=== PATIENT | male | born 1950 | race Caucasian/White ===

== ENCOUNTER → 2020-06-11 07:29 | Outpatient (REF) | payer MEDICARE, SELFPAY | LOC: ANHLAB 07:29 | PROVIDERS: PCP Internal Medicine; Visit Provider Nurse Practitioner | DX: C44.1121 Basal cell carcinoma of skin of right upper eyelid, including canthus (principal); C44.319 Basal cell carcinoma of skin of other parts of face | CPT/HCPCS: 88305; 88331 ==

== ENCOUNTER 2021-03-19 15:30 | Emergency (ER) | payer MEDICARE, SELFPAY ==
--- NOTE | ~2021-03-19 | XR_ITS ---
XR chest 2V 03/19/2021 17:07 Indication: Cough, fever and congestion Procedure: 2 view chest Comparison: No prior studies for comparison. Findings: Bibasilar airspace disease, consistent with pneumonia. No significant pleural effusion. No pneumothorax. No acute osseous abnormality. Impression: 1: Bibasilar airspace disease, compatible with pneumonia. Reviewed, dictated and finalized at location A. Impression: 1: Bibasilar airspace disease, compatible with pneumonia.
[2021-03-19 16:13] VITALS: BP 168/76; PULSE 102; RESP 20; TEMP 38.2; O2SAT 99
[2021-03-19 16:38] LABS: Basophils Absolute Auto 0.1 K/mm3 (0.0-0.1); Basophils Percent Auto 0.4 % (0.2-1.2); Eosinophils Percent Auto 0.2 % (0-4.4); Hematocrit 39.7 % (42.0-52.0); Hemoglobin 13.3 g/dL (14.0-18.0); Immature Granulocyte Absolute 0.09 K/mm3 (0.00-0.031); Immature Granulocyte Percent A 0.6 % (0-0.5); Lymphocytes Absolute Auto 0.86 K/mm3 (0.9-3.2); Lymphocytes Percent Auto 6.1 % (18.3-44.2); Mean Corpuscular HGB Conc 33.5 g/dl (32-36); Mean Corpuscular Hemoglobin 30.1 pg (26-34); Mean Corpuscular Volume 89.8 fl (80-100); Mean Platelet Volume 9.6 fl (7.4-10.4); Monocytes Absolute Auto 0.8 K/mm3 (0.1-0.6); Monocytes Percent Auto 5.7 % (2.6-8.5); Neutrophils Absolute Auto 12.3 K/mm3 (1.3-6.7); Platelet Count Result 252 k/mm3 (150-375); Red Blood Count 4.42 M/mm3 (4.6-6.20); Red Cell Distribution Width 12.4 % (11.5-14.5); White Blood Count 14.1 K/mm3 (4.5-10.0)
[2021-03-19 16:48] LABS: Anion Gap 9 mmol/L (8-16); Blood Urea Nitrogen 15 mg/dL (9-20); Carbon Dioxide 25 mmol/L (22-30); Chloride 106 mmol/L (98-107); Estimated CRCL calculation 91 ml/min; Estimated Glomerular Filt Rate > 60; Glucose 125 mg/dL (65-110); Potassium 4.1 mmol/L (3.4-5.0); Sodium 140 mmol/L (137-145)
[2021-03-19 19:43] VITALS: BP 165/95; PULSE 109; RESP 18; TEMP 38.6; O2SAT 97
[2021-03-19 19:47] VITALS: O2SAT 95
--- NOTE | 2021-03-19 20:25 | ED.GENADULT ---
HPI - General Adult General Chief complaint: Upper Respiratory Infection Stated complaint: cough, sent by pcp Time Seen by Provider: 03/19/21 19:12 Source: patient and RN notes reviewed History of Present Illness HPI narrative: Patient is a 70 y/o male complaining of cough, fever and headache for about 11 days. HE states that he is coughing up some white phlegm. He is taking some OTC cough medicine, which provides temporary relief. He was seen by his PCP today and sent to ED for further evaluation. Related Data Home Medications Medication Instructions Recorded Confirmed calcium-ergocalciferol (vit D2) tablet PO 06/11/20 tablet [id number]-[id number]-hrb tablet PO 06/11/20 149-hyalur 500 mg-500 mg-66.7 mg tablet multivitamin 1 tablet PO DAILY 06/11/20 testosterone TRANSDERMAL 06/11/20 Allergies Allergy/AdvReac Type Severity Reaction Status Date / Time No Known Allergies Allergy Verified 06/18/20 14:56 Review of Systems Constitutional: Constitutional: Denies chills, Reports fever(s), Reports headache(s) and Denies weakness Eyes: Eyes: Denies blurry vision ENT: Reports headache(s) and Denies neck pain Cardiovascular: Cardiovascular: Denies chest pain and Denies dyspnea Respiratory: Respiratory: Reports cough and Denies dyspnea Gastrointestinal: Gastrointestinal: Denies abdominal pain, Denies diarrhea, Denies nausea and Denies vomiting Genitourinary: Genitourinary: Denies hematuria and Denies dysuria Musculoskeletal: Musculoskeletal: Denies back pain and Denies neck pain Neurologic: Reports headache(s) and Denies weakness [facility] Past Medical History Medical History History of basal cell carcinoma (BCC) of skin History of squamous cell carcinoma Family History Family History Other Cerebrovascular accident Diabetes mellitus Family history of arthritis Social History Social History Smoking status: Never smoker Alcohol intake: current Substance use: never Substance use type: does not use Exam Const: General: no acute distress and well developed Orientation/consciousness: oriented to person, oriented to place, oriented to time and patient oriented x3 HENMT: Head: normocephalic Ears: external ears normal General nose exam: Normal external nose present Eyes: General: appearance normal, both eyes and all related structures Conjunctivae: conjunctivae normal Neck: Neck: normal visual inspection and full ROM Chest: Chest palpation & inspection: normal inspection of the chest and no tenderness Resp: Effort & Inspection: normal respiratory effort Auscultation: clear to auscultation bilaterally Cardio: Rate: regular rate Rhythm: regular rhythm GI: GI Palp: No abdominal tenderness and Yes Soft to palpation Skin: General skin exam: normal color and turgor normal Neuro: General: oriented to person, oriented to place, oriented to time and patient oriented x3 Cognition (Neuro): normal cognition Extrem: General: normal to inspection, full ROM and no pedal edema Psych: Appearance: grossly normal Mental Status: mental status grossly normal Affect: normal affect Course Vital Signs Vital signs: Vital Signs Temperature 38.2 C H 03/19/21 16:13 Pulse Rate 102 H 03/19/21 16:13 Respiratory Rate 03/19/21 16:13 Blood Pressure 168/76 H 03/19/21 16:13 Pulse Oximetry 99 03/19/21 16:13 Temperature 37.8 C H 03/19/21 22:29 Pulse Rate 101 H 03/19/21 22:29 Respiratory Rate 22 H 03/19/21 22:29 Blood Pressure 159/79 H 03/19/21 22:29 Pulse Oximetry 95 03/19/21 22:29 Medical Decision Making Vital Signs Vital Signs: Vital Signs Temperature 38.2 C H 03/19/21 16:13 Pulse Rate 102 H 03/19/21 16:13 Respiratory Rate 03/19/21 16:13 Blood Pressure 168/76 H
[2021-03-19 20:48] LABS: EDCOVIDSCREEN Negative (Negative)
[2021-03-19 21:39] LABS: Add Urine Microscopic? YES; Appearance Urine Clear (Clear); Bacteria Urine Trace /hpf; Bilirubin Urine Negative (Negative); Blood Urine Negative (Negative); Color Urine Yellow (Yellow); Glucose Urine UA Negative (Negative); Ketones Urine 2+ mg/dL (Negative); Leukocyte Esterase Ur Negative LEU/UL (Negative); Mucus Urine Heavy /lpf; Nitrate Urine Negative (Negative); Protein Urine 2+ mg/dL (Negative); Specific Grav Ur 1.027 (1.001-1.035); WBC Urine 0-3 /hpf
[2021-03-19 21:53] LABS: Lactic Acid Reflex 0.9 mmol/L (0.7-2.1)
--- NOTE | 2021-03-19 22:17 | PC.NURSE ---
MIGUEL ANGEL DEVI TYLENOL 650MG PO .
[2021-03-19] MEDS: ACETAMINOPHEN 325 MG TABLET 650 MG PO (22:23)
[2021-03-19 22:29] VITALS: BP 159/79; PULSE 101; RESP 22; TEMP 37.8; O2SAT 95
== END 2021-03-19 23:01 | disposition home or self-care (01) ==
PROVIDERS: Emergency Medicine; Emergency Provider Emergency Medicine; PCP Internal Medicine
DX: J18.9 Pneumonia, unspecified organism (principal); Z20.822 Contact with and (suspected) exposure to COVID-19; Z85.828 Personal history of other malignant neoplasm of skin
CPT/HCPCS: 36415; 71046; 80048; 81001; 83605; 85025; 87040; 87426; 96365; 99284; A9270; C9803; J0696

== ENCOUNTER → 2021-04-29 09:16 | Outpatient (REF) | payer MEDICARE, SELFPAY | LOC: ANHLAB 09:16 | PROVIDERS: PCP Internal Medicine; Visit Provider Nurse Practitioner | DX: C44.229 Squamous cell carcinoma of skin of left ear and external auricular canal (principal); C44.619 Basal cell carcinoma of skin of left upper limb, including shoulder | CPT/HCPCS: 88305; 88331 ==

== ENCOUNTER 2021-06-16 07:28 | Outpatient (CLI) | payer MEDICARE, SELFPAY ==
--- NOTE | ~2021-06-16 | MR_ITS ---
EXAMINATION: MR knee RT wo con DATE: 06/16/2021 09:07 INDICATION: Right knee pain. TECHNIQUE: Magnetic resonance imaging (MRI) of the right knee was performed without intravenous contr ast. Sequences included axial PD-weighted FS FSE, coronal PD-weighted FSE and PD-weighted FS FSE, sag ittal PD-weighted FSE, and sagittal T2-weighted FS FSE. COMPARISON: None. FINDINGS: Medial compartment: There is an undersurface horizontal tear of body and posterior horn of medial meniscus. There is part ial-thickness cartilage loss of femoral condyle, deep at the posterior articular surface. There is sh allow partial-thickness cartilage loss of tibial condyle. Lateral compartment: There is a complex tear of posterior root of lateral meniscus. There is partial-thickness cartilage l oss of tibial condyle, deep at the central and posterior articular surface. There is shallow partial- thickness cartilage loss of femoral condyle. Patellofemoral compartment: There is deep partial thickness cartilage loss of patellar medial facet, median ridge, and lateral fa cet with mild subchondral edema-like marrow signal intensity. There is shallow partial-thickness cart ilage loss of trochlea. Ligaments and tendons: There is a complete tear of anterior cruciate ligament at its femoral attachment. There is a partial tear of posterior cruciate ligament characterized with thickening and increased signal intensity. The re are changes of partial tears of medial collateral ligament and fibular collateral ligament charact erized by thickening and increased signal intensity proximally. There is mild patellar tendinopathy. Fluid: There is a small knee joint effusion. There is trace fluid in a Sanford's cyst. There is mild prepatell ar and superficial infrapatellar bursitis. IMPRESSION: 1. Moderate tricompartmental chondrosis. 2. Tears of medial and lateral menisci. 3. Complete tear of anterior cruciate ligament. 4. Partial tear of posterior cruciate ligament. 5. Small knee joint effusion. Reviewed, dictated and finalized at location A. GENCY SERVICES DIRECTOR
== END 2021-06-16 07:29 | disposition home or self-care (01) ==
LOC: ANHIMG 07:36
PROVIDERS: PCP Internal Medicine; Visit Provider Internal Medicine
DX: M25.461 Effusion, right knee (principal); S83.281A Other tear of lateral meniscus, current injury, right knee, initial encounter; S83.521A Sprain of posterior cruciate ligament of right knee, initial encounter; S83.511A Sprain of anterior cruciate ligament of right knee, initial encounter; S83.241A Other tear of medial meniscus, current injury, right knee, initial encounter; X58.XXXA Exposure to other specified factors, initial encounter
CPT/HCPCS: 73721

== ENCOUNTER 2022-03-03 08:49 | Outpatient (CLI) | payer MEDICARE, SELFPAY | END 2022-03-03 08:50 | disposition home or self-care (01) | LOC: ANHAUDIO 08:50 | PROVIDERS: PCP Internal Medicine; Referring Provider Physician Assistant Medical; Visit Provider Physician Assistant Medical | DX: H90.3 Sensorineural hearing loss, bilateral (principal) | CPT/HCPCS: 92557; 92567 ==

== ENCOUNTER 2022-08-04 12:58 | Outpatient (NON) | payer MEDICARE, SELFPAY | END 2022-08-04 12:59 | disposition home or self-care (01) | PROVIDERS: PCP Internal Medicine; Visit Provider Nurse Practitioner | DX: C44.319 Basal cell carcinoma of skin of other parts of face (principal) | CPT/HCPCS: 88305; 88331 ==

== ENCOUNTER 2025-01-25 09:22 | Emergency (ER) | payer MEDICARE, SELFPAY ==
--- OUTSIDE RECORDS SUMMARY | 2025-01-25 09:28 | XMS_ITS | Clinical Summary ---
Author Organization [facility] [facility] Address [address] [place] [address] Care Team Providers Care Aircraft Metalsmith Name Role Phone Tanya Bowen Primary Care Provider [phone] Allergies Active Allergy Reactions Criticality Noted Date Comments Shrimp Hives Medium 11/05/2021 Medications ezetimibe (ZETIA) 10 mg tablet 06/27/20 Active simvastatin (ZOCOR) 10 mg tablet 06/27/20 19 Active losartan (COZAAR) 100 mg tablet Take 1 tablet (100 mg total) by mouth daily 07/31/19 22 Active oxyCODONE (ROXICODONE) 5 mg immediate release tabletIndicati ons:Pain Take 1 tablet (5 mg total) by mouth every 4 (four) hours as needed for pain 10 tablet 11/06/19 22 Active Additional Information Patient not taking.Reported on 08/31/2023 BD Luer-Mitch Syringe 3 mL 22 gauge x 1 syringe as directed 08/18/19 24 Active BD Integra Syringe 3 mL 23 gauge x 1 syringe as directed 08/18/19 24 Active testosterone cypionate (DEPO-TESTOTER ONE) 200 mg/mL injection 150 MG (0.75 ML) INTRAMUSCULARLY EVERY 8 DAYS A SINGLE DOSE 08/18/19 24 Active testosterone micronized, bulk, 100 % powder 5 07/10/20 23 Active Active Problems Problem Noted Date Diagnosed Date Complete tear of right ACL, subsequent encounter 07/28/2024 Carpal tunnel syndrome of right wrist 08/31/2023 Localized superficial swelling, mass, or lump Localized swelling, mass and lump, left upper li mb 08/31/2023 Carpal tunnel syndrome on left 11/01/2021 Overview (11/01/2021): Added automatically from request for surgery [id number] Primary osteoarthritis of right knee 08/02/2021 Chronic pain of right knee 06/21/2021 Rupture of anterior cruciate ligament of right k nee 06/21/2021 Tear of lateral meniscus of right knee, current 06/21/2021 Complex tear of medial menis cus of right knee as current injury 06/21/2021 Surgical History Surgery Date Site/Laterality Comments ROTATOR CUFF REPAIR SHOULDER ARTHROSCOPY Medical History Medical History Date Comments Hypertension Migraines Family History Medical History Relation Name Comments Arthritis Father Stroke Father Arthritis Mother Diabetes Mother Stroke Mother Relation Name Status Comments Father Mother Social History Tobacco Use Types Packs/Day Years Used Date Smoking Tobacco: Never Smokeless Tobacco: Never Tobacco Cessation:Counseling Given: Not Answered AUDIT-C Answer Date Recorded Q1: How often do you have a drink containing alc ohol? Monthly or less 09/08/2023 Q2: How many drinks containi ng alcohol do you have on a typical day when you are drinking? 1 or 2 09/08/2023 Q3: How often do you have si x or more drinks on one occasion? Less than monthly 09/08/2023 Personal Safety Answer Date Recorded Have you ever been in or are you currently in a harmful physical or emotional relationship or is someone making you feel afraid or unsafe? Denies 09/08/2023 Sex and Gender Information Value Date Recorded Sex Assigned at Not on file Legal Sex Male 6:10 PM ASSISTANT THERAPY AIDE Gender Identity Not on file Sexual Orientation Not on file Occupation Industry Job Start Date Job End Date RETIRED Not on file Not on file Not on file Obstetrics History Last Filed Vital Signs Vital Sign Reading Time Taken Comments Blood Pressure 161/85 09/08/2023 2:15 PM ASSISTANT THERAPY AIDE Pulse 89 09/08/2023 2:15 PM ASSISTANT THERAPY AIDE Temperature 36.5 C (97.7 F) 09/08/2023 1:36 PM ASSISTANT THERAPY AIDE Respiratory Rate 20 09/08/2023 2:15 PM ASSISTANT THERAPY AIDE Oxygen Saturation 95% 09/08/2023 2:15 PM ASSISTANT THERAPY AIDE Inhaled Oxygen Concentration - - Weight 104.3 kg (230 lb) 07/28/2024 2:26 PM ASSISTANT THERAPY AIDE Height 175.3 cm (5' 9) 07/28/2024 2:26 PM ASSISTANT THERAPY AIDE Body Mass Index 33.97 07/28/2024 2:26 PM ASSISTANT THERAPY AIDE Plan of Treatment Health Maintenance Due Date Last Done Comments Colon Cancer Screening-Colonoscopy 1950 Depression Screening 1950 Hepatitis C Screening 1950 Hepatitis B Screening 1970 Well Visit 65+ 2017 Pneumococcal vaccine 65+ (2 of 2 - PPSV23) 11/15/2018 11/15/2017 Fall Risk Assessment 09/08/2024 09/08/2023 Influenza Vaccine (Season Ended) 2025 05/19/20 17 DTaP/Tdap/Td Vaccine (2 - Td or Tdap) 11/16/202712/2017 Zoster Vaccine Completed 02/18/2018, 12/2017, 08/02/2012 Insurance [facility] AETNA MEDICARE GOLD TNA MEDICARE GOLD Advance Directives For more information, please contact: [phone] Documents on File Type Date Recorded Patient Fish Salter Expl anation ADVANCE DIRECTIVE 08/05/2019 12:00 AM CARMENCITA R OF TIRE DEBEADER FINANCIAL/MEDICAL Care Teams Aircraft Metalsmith Relationship Specialty Start Date End Date Tanya Bowen PA [address] [place] [id number] PCP - General Family Practice 08/31/23
--- OUTSIDE RECORDS SUMMARY | 2025-01-25 09:28 | XMS_ITS | Referral Summary ---
Author Organization [facility] [facility] Address [address] [place] [address] Care Team Providers Care Dynamics Ax Consultant Name Role Phone Tanya Bowen Primary Care Provider [phone] Allergies Active Allergy Reactions Criticality Noted Date [...] (11/01/2021): Added automatically from request for surgery [id number] Primary osteoarthritis of right knee 08/02/2021 Chronic pain of right knee 06/21/2021 Rupture of anterior cruciate ligament of right k nee 06/21/2021 Tear of lateral meniscus of right knee, current 06/21/2021 Complex tear of medial menis cus of right knee as current injury 06/21/2021 Social History Tobacco Use Types Packs/Day Years [...] on file Legal Sex Male 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 Gender Identity Not on file Sexual Orientation Not on file Occupation Industry Job Start Date Job End Date RETIRED Not on file Not on file Not on file Last Filed Vital Signs Vital Sign Reading Time Taken Comments Blood Pressure 161/85 09/08/2023 2:15 PM MIXED CROP AND LIVESTOCK FARM WORKER Pulse 89 09/08/2023 2:15 PM MIXED CROP AND LIVESTOCK FARM WORKER Temperature 36.5 C (97.7 F) 09/08/2023 1:36 PM MIXED CROP AND LIVESTOCK FARM WORKER Respiratory Rate 20 09/08/2023 2:15 PM MIXED CROP AND LIVESTOCK FARM WORKER Oxygen Saturation 95% 09/08/2023 2:15 PM MIXED CROP AND LIVESTOCK FARM WORKER Inhaled Oxygen Concentration - - Weight 104.3 kg (230 lb) 07/28/2024 2:26 PM MIXED CROP AND LIVESTOCK FARM WORKER Height 175.3 cm (5' 9) 07/28/2024 2:26 PM MIXED CROP AND LIVESTOCK FARM WORKER Body Mass Index 33.97 07/28/2024 2:26 PM MIXED CROP AND LIVESTOCK FARM WORKER Plan of Treatment Not on file Insurance [facility] AETNA MEDICARE GOLD AETNA MEDICARE GOLD Advance Directives For more information, please contact: [phone] Documents on File Type Date Recorded Patient Physician Support Coordinator Expl anation ADVANCE DIRECTIVE 08/05/2019 12:00 AM CARMENCITA R OF LIFTER/DRIVER FINANCIAL/MEDICAL Care Teams Dynamics Ax Consultant Relationship Specialty Start Date End Date Tanya Bowen PA [address] [place] [id number] PCP - General Family Practice 08/31/23
--- OUTSIDE RECORDS SUMMARY | 2025-01-25 09:28 | XMS_ITS | Encounter Summary ---
Author Organization [facility] Address [address] [place] [address] Care Team Providers Care Mother Superior Name Role Phone Scar Simon MD Primary Care Provider [phone] Encounter Details Date Type Department Care Team (Late st Contact Info) Description 10/23/2022 Lab Requisition [facility] DermPath Lab [address] [facility] [address] [facility] [place] [phone] Mich Mays MD [address] [address] [place] [address] Social History Tobacco Use Types Packs/Day Years Used Date Smoking Tobacco: Never Assessed Sex and Gender Information Value Date Recorded Sex Assigned at Not on file Legal Sex Male 4:20 PM CDT Gender Identity Not on file Sexual Orientation Not on file documented as of this encounter Plan of Treatment Not on file documented as of this encounter Procedures Procedure Name Priority Date/Time Associated Diagnosis Comments DERMATOPATHOLOGY Routine 10/23/2022 12:0 0 AM CDT documented in this encounter Results * DERMATOPATHOLOGY (10/23/2022 12:00 AM CDT) Case Report Dermatopathology Report Case: [id number] Authorizing Provider: Mich Mays MD Collected: 10/23/2022 12:00 AM Ordering Location: [facility] DermPath Lab Received: 10/23/2022 04:48 PM Pathologist: Mervat Felix MD Specimens: A) - Skin, left neck B) - Skin, left forearm 10:48 AM CDT DERMATOPATHOLOGY LABORATORY Final Diagnosis Specimen A. SKIN, left neck: SOLAR LENTIGO (L81.4) (see microscopic description) Specimen B. SKIN, left forearm: BASAL CELL CARCINOMA, SUPERFICIAL MULTIFOCAL (C44.619) 10:48 AM CDT DERMATOPATHOLOGY LABORATORY at 1048 CDT Clinical History A: Lentigo vs MM Path#[id number] B: BCCA Path#[id number] 10:48 AM CDT DERMATOPATHOLOGY LABORATORY Gross Description Specimen A: Received is one formalin filled container labeled with the patient's name and designated left neck. The specimen consists of a shave biopsy measuring 4x4x1 mm. Jar 0. Specimen B: Received is one formalin filled container labeled with the patient's name and designated left forearm. The specimen consists of a shave biopsy measuring 5x4x1 mm. Jar 0. 10:48 AM CDT DERMATOPATHOLOGY LABORATORY Microscopic Description Specimen A. SKIN, left neck: There is orthokeratosis. There is a slight increase in epidermal thickness with lentiginous buds of hyperpigmented keratinocytes. The number of melanocytes, highlighted by MART-1/Melan-A immunohistochemical staining, is only mildly increased. In the dermis, there is basophilic degeneration of elastic fibers. Specimen B. SKIN, left forearm: Attached to the undersurface of the epidermis, there are small aggregates of basaloid cells with a high nuclear to cytoplasmic ratio and peripheral palisading. 10:48 AM CDT DERMATOPATHOLOGY LABORATORY Disclaimer An external and internal positive and negative controls are appropriate for the histochemical, immunohistochemical and immunofluorescence stain(s) in this case (if any), except where stated explicitly. The performance characteristics of the stain(s) cited in this report were developed and its performance characteristic determined by the Dermatopathology Laboratory at [facility], directed by Dr. Joaquim Alicea. These tests need not be, and therefore are not, approved by the [place] Food and Drug Administration. The tests are used for clinical purposes. Billing Codes Specimen Charges Stain Charges 42434 27224 1 1 19976 1 3 10:48 AM CDT DERMATOPATHOLOGY LABORATORY Embedded Images 10:48 AM CDT DERMATOPATHOLOGY LABORATORY Pathology/Cytology TISSUE SPECIMEN FROM SKIN / Unknown 10/23/2022 10/23/2022 4:48 PM CDT Miscellaneous samples (specimen) TISSUE SPECIMEN FROM SKIN / Unknown 10/23/2022 10/23/2022 4:48 PM CDT us Mich Mays MD LAB - PATHOLOGY/CYTOLOGY ORDER TIRSO Final Result DERMATOPATHOLOGY LABORATORY [facility] - Department of Dermatology [facility] Medicine [address] [place] [address], [address] [phone] documented in this encounter Visit Diagnoses Not on filedocumented in this encounter Care Teams Mother Superior Relationship Specialty Start Date End Date Scar Simon MD [address] [place] [id number] PCP - General 08/20/22 documented as of this encounter
--- OUTSIDE RECORDS SUMMARY | 2025-01-25 09:28 | XMS_ITS | Clinical Summary ---
Author Organization [facility] Address [address] [place] [address] Care Team Providers Care Arts Therapist Name Role Phone Unavailable Primary Care Provider Unavailabl e Social History Tobacco Use Types Packs/Day Years Used Date Smoking Tobacco: Never Assessed Sex and Gender Information Value Date Recorded Sex Assigned at Not on file Legal Sex Male 7:59 PM CDT Gender Identity Not on file Sexual Orientation Not on file Plan of Treatment Health Maintenance Due Date Last Done Comments Colorectal Cancer Screening Colonoscopy (10 Years) 1952 Hepatitis C 1970 Zoster Vaccines (2 of 3) 09/27/2012 08/02/2012 Pneumococcal Vaccine: 50+ Years (2 of 2 - PPSV23) 11/15/2018 11/15/2017 COVID-19 Vaccine (2023-2 5 season) 2024 04/17/2021, 09/28/2020, 09/07/2020 RSV Immunization or 60+ Years (1 - 1-dose 75+ series) 2027 DTaP, Tdap and Td Vaccines ( 2 - Td or Tdap) 11/16/2027 11/15/2017 Meningococcal B Vaccine Aged Out No l onger eligible based on patient's age to complete this topic Meningococcal Vaccine Aged Out No camron jace eligible based on patient's age to complete this topic RSV Immunizations Under 20 Months Aged Out No longer eligible b ased on patient's age to complete this topic
--- OUTSIDE RECORDS SUMMARY | 2025-01-25 09:28 | XMS_ITS | Encounter Summary ---
Author Organization [facility] Address [address] [place] [address] Care Team Providers Care Front Line Leader Name Role Phone Scar Simon MD Primary Care Provider [phone] Encounter Details Date Type Department Care Team (Late st Contact Info) Description 12/02/2021 Lab Requisition [facility] DermPath Lab [address] [facility] [place] [phone] Mich Mays MD [address] [facility] [address] [place] [address] Social History Tobacco Use Types Packs/Day Years [...] Priority Date/Time Associated Diagnosis Comments DERMATOPATHOLOGY Routine 11/29/2021 12:0 0 AM CDT documented in this encounter Results * DERMATOPATHOLOGY (11/29/2021 12:00 AM CDT) Case Report Dermatopathology Report Case: [id number] Authorizing Provider: Mich Mays MD Collected: 11/29/2021 12:00 AM Ordering Location: [facility] DermPath Lab Received: 12/02/2021 04:53 PM Pathologist: Sonia Street MD Specimen: Skin, right lower cheek 10:07 AM CDT DERMATOPATHOLOGY LABORATORY Final Diagnosis Specimen A. SKIN, right lower cheek: BENIGN VERRUCOUS KERATOSIS, INFLAMED AND ERODED (L82.1) (see microscopic description) 2 10:07 AM T DERMATOPATHOLOGY LABORATORY at [address] [place], [place] [address]T Clinical History AK vs ISK vs SCC. Path#[id number] 10:07 AM T DERMATOPATHOLOGY LABORATORY Gross Description Specimen A: Received is one formalin filled container labeled with the patient's name and designated right lower cheek. The specimen consists of a shave biopsy measuring 9x6x1 mm. Jar 0. 10:07 AM T DERMATOPATHOLOGY LABORATORY Microscopic Description Specimen A. SKIN, right lower cheek: Sections show hyperkeratosis, papillomatosis, hypergranulosis, and acanthosis. Inflammatory cells are present within the dermis. The epidermis is focally eroded. Ki-67 immunohistochemical stain reveals a mildly elevated proliferative index in the lower epidermis. Additional deeper sections were obtained and reviewed. These histological findings can be seen in a verruca vulgaris or a seborrheic keratosis. 10:07 AM T DERMATOPATHOLOGY LABORATORY Disclaimer An external and internal positive and negative controls are appropriate for the histochemical, immunohistochemical and immunofluorescence stain(s) in this case (if any), except where stated explicitly. The performance characteristics of the stain(s) cited in this report were developed and its performance characteristic determined by the Dermatopathology Laboratory at [facility], directed by Dr. Joaquim Alicea. These tests need not be, and therefore are not, approved by the [place] Food and Drug Administration. The tests are used for clinical purposes. Billing Codes Specimen Charges Stain Charges 46503 1 05017 1 2 10:07 AM CDT DERMATOPATHOLOGY LABORATORY Embedded Images 10:07 AM CDT DERMATOPATHOLOGY LABORATORY Pathology/Cytolog y TISSUE SPECIMEN FROM SKIN / Unknown 11/29/2021 12/02/2021 4:53 PM CDT us Mich Mays MD LAB - PATHOLOGY/CYTOLOGY ORDER TIRSO Final Result DERMATOPATHOLOGY LABORATORY [facility] - Department of Dermatology [facility] [facility], 3rd Floor [address] [phone] documented in this encounter Visit Diagnoses Not on filedocumented in this encounter Care Teams Front Line Leader Relationship Specialty Start Date End Date Scar Simon MD [address] [place] [id number] PCP - General 08/20/22 documented as of this encounter
--- OUTSIDE RECORDS SUMMARY | 2025-01-25 09:28 | XMS_ITS | Encounter Summary ---
Author Organization [facility] Address [address] [place] [address] Care Team Providers Care Manager Hi Name Role Phone Scar Simon MD Primary Care Provider [phone] Encounter Details Date Type Department Care Team (Late st Contact Info) Description 02/12/2021 Lab Requisition [facility] DermPath Lab [address] [facility], [place] [phone] Mich Mays MD [address] [place] [address] Social History Tobacco Use Types Packs/Day Years [...] Priority Date/Time Associated Diagnosis Comments DERMATOPATHOLOGY Routine 02/08/2021 3:33 AM CDT documented in this encounter Results * DERMATOPATHOLOGY (02/08/2021 3:33 AM CDT) Case Report Dermatopathology Report Case: [id number] Authorizing Provider: Mich Mays MD Collected: 02/08/2021 03:33 AM Ordering Location: [facility] DermPath Lab Received: 02/12/2021 06:28 AM Pathologist: Sonia Street MD Specimens: A) - Skin, left shoulder B) - Skin, left helix 11:45 AM CDT DERMATOPATHOLOGY LABORATORY Final Diagnosis Specimen A. SKIN, left shoulder: BASAL CELL CARCINOMA (C44.619) (see microscopic description and comment) Specimen B. SKIN, left helix: SQUAMOUS CELL CARCINOMA, WELL DIFFERENTIATED (C44.229) 11:45 AM T DERMATOPATHOLOGY LABORATORY at 1145 CDT Clinical History A: BCCA vs AK. Path# [id number]. B: AK vs SCCA. Path# [id number]. 11:45 AM CDT DERMATOPATHOLOGY LABORATORY Gross Description Specimen A: Received is one formalin filled container labeled with the patient's name and designated left shoulder. The specimen consists of a shave biopsy measuring 4y2u5zy. Jar 0. Specimen B: Received is one formalin filled container labeled with the patient's name and designated left helix. The specimen consists of a shave biopsy measuring [id number]. Jar 0. 11:45 AM CDT DERMATOPATHOLOGY LABORATORY Microscopic Description Specimen A. SKIN, left shoulder: The specimen consists of aggregates of basaloid cells, located within the superficial dermis, with high nuclear to cytoplasmic ratio and peripheral palisading. COMMENT: The small size of the specimen limits subtyping of the lesion. Specimen B. SKIN, left helix: Arising in the epidermis and extending into the dermis there are irregularly shaped aggregates of keratinocytes showing evidence of premature cornification. 11:45 AM CDT DERMATOPATHOLOGY LABORATORY Disclaimer An external and internal positive and negative controls are appropriate for the histochemical, immunohistochemical and immunofluorescence stain(s) in this case (if any), except where stated explicitly. The performance characteristics of the stain(s) cited in this report were developed and its performance characteristic determined by the Dermatopathology Laboratory at [facility], directed by Dr. Joaquim Alicea. These tests need not be, and therefore are not, approved by the [place] Food and Drug Administration. The tests are used for clinical purposes. Billing Codes Specimen Charges Stain Charges 63438 92654 1 1 11:45 AM CDT DERMATOPATHOLOGY LABORATORY Embedded Images 11:45 AM CDT DERMATOPATHOLOGY LABORATORY Pathology/Cytology TISSUE SPECIMEN FROM SKIN / Unknown 02/08/2021 3:33 AM CDT 02/12/2021 6:28 AM CDT Miscellaneous samples (specimen) TISSUE SPECIMEN FROM SKIN / Unknown 02/08/2021 3:33 AM CDT 02/12/2021 6:28 AM CDT us Mich Mays MD LAB - PATHOLOGY/CYTOLOGY ORDER TIRSO Final Result DERMATOPATHOLOGY LABORATORY [facility] - Department of Dermatology [facility] Medicine [address] [place] [address], [address] [phone] documented in this encounter Visit Diagnoses Not on filedocumented in this encounter Care Teams Manager Hi Relationship Specialty Start Date End Date Scar Simon MD [address] [place] [phone] PCP - General 08/20/22 documented as of this encounter
--- OUTSIDE RECORDS SUMMARY | 2025-01-25 09:28 | XMS_ITS | Encounter Summary ---
Author Organization [facility] Address [address] [place] [address] Care Team Providers Care Band Tumbler Name Role Phone Scar Simon MD Primary Care Provider [phone] Encounter Details Date Type Department Care Team (Late st Contact Info) Description 06/13/2022 Lab Requisition [facility] DermPath Lab [address] [address] [facility] [facility] [place] [phone] Mich Mays MD [address] [place] [address] Social History Tobacco Use Types Packs/Day Years [...] Priority Date/Time Associated Diagnosis Comments DERMATOPATHOLOGY Routine 06/13/2022 12:0 0 AM MOLD CARRIER documented in this encounter Results * DERMATOPATHOLOGY (06/13/2022 12:00 AM MOLD CARRIER) Case Report Dermatopathology Report Case: [id number] Authorizing Provider: Mich Mays MD Collected: 06/13/2022 12:00 AM Ordering Location: [facility] DermPath Lab Received: 06/13/2022 04:37 PM Pathologist: Dora Westbrook MD Specimen: Skin, right adventist 4:21 PM MOLD CARRIER DERMATOPATHOLOGY LABORATORY Final Diagnosis Specimen A. SKIN, right adventist: BASAL CELL CARCINOMA, NODULAR TYPE (C44.319) 2 4:21 PM [facility] DERMATOPATHOLOGY LABORATORY at 1621 MOLD CARRIER Clinical History R/O Recurrent BCCA. Path3 [id number] 2 4:21 PM [facility] DERMATOPATHOLOGY LABORATORY Gross Description Specimen A: Received is one formalin filled container labeled with the patient's name and designated right adventist. The specimen consists of a shave biopsy measuring 7x7x1 mm. Jar 0. 2 4:21 PM [facility] DERMATOPATHOLOGY LABORATORY Microscopic Description Specimen A. SKIN, right adventist: Within the dermis there are aggregates of basaloid cells with a high nuclear to cytoplasmic ratio and peripheral palisading. 2 4:21 PM [facility] DERMATOPATHOLOGY LABORATORY Disclaimer An external and internal positive and negative controls are appropriate for the histochemical, immunohistochemical and immunofluorescence stain(s) in this case (if any), except where stated explicitly. The performance characteristics of the stain(s) cited in this report were developed and its performance characteristic determined by the Dermatopathology Laboratory at [facility], directed by Dr. Joaquim Alicea. These tests need not be, and therefore are not, approved by the [place] Food and Drug Administration. The tests are used for clinical purposes. Billing Codes Specimen Charges Stain Charges 17144 1 2 4:21 PM [facility] DERMATOPATHOLOGY LABORATORY Embedded Images 2 4:21 PM [facility] DERMATOPATHOLOGY LABORATORY Pathology/Cytolog y TISSUE SPECIMEN FROM SKIN / Unknown 06/13/2022 06/13/2022 4:37 PM [facility] us Mich Mays MD LAB - PATHOLOGY/CYTOLOGY ORDER TIRSO Final Result DERMATOPATHOLOGY LABORATORY [facility] - Department of Dermatology [facility] Medicine [address] [place] [address], [address] [place] [address], [facility] [phone] documented in this encounter Visit Diagnoses Not on filedocumented in this encounter Care Teams Band Tumbler Relationship Specialty Start Date End Date Scar Simon MD [address] [place] [id number] PCP - General 08/20/22 documented as of this encounter
--- OUTSIDE RECORDS SUMMARY | 2025-01-25 09:28 | XMS_ITS | Encounter Summary ---
Author Organization [facility] Address [address] [place] [address] Care Team Providers Care Sped Teacher Name Role Phone Scar Simon MD Primary Care Provider [phone] Encounter Details Date Type Department Care Team (Late st Contact Info) Description 04/17/2020 Lab Requisition [facility] DermPath Lab [address] [facility] [place] [phone] Mich Mays MD [address] [place] [address] Social History Tobacco Use Types Packs/Day Years [...] Priority Date/Time Associated Diagnosis Comments DERMATOPATHOLOGY Routine 04/13/2020 12:0 0 AM CDT documented in this encounter Results * DERMATOPATHOLOGY (04/13/2020 12:00 AM CDT) Case Report Dermatopathology Report Case: [id number] Authorizing Provider: Mich Mays MD Collected: 04/13/2020 12:00 AM Ordering Location: [facility] DermPath Lab Received: 04/17/2020 07:08 AM Pathologist: Sonia Street MD Specimens: A) - Skin, right restorationism B) - Skin, right upper lid 0 1:20 PM CDT DERMATOPATHOLOGY LABORATORY Final Diagnosis Specimen A. SKIN, right restorationism: BASAL CELL CARCINOMA, INFILTRATIVE PATTERN (C44.319) Specimen B. SKIN, right upper lid: BASAL CELL CARCINOMA, NODULAR TYPE (C44.1121) (see microscopic description) 0 1:20 PM CDT DERMATOPATHOLOGY LABORATORY at 1320 CDT Clinical History A: BCCA. Path # [id number]. B: BCCA. Path # [id number]. 0 1:20 PM CDT DERMATOPATHOLOGY LABORATORY Gross Description Specimen A: Received is one formalin filled container labeled with the patient's name and designated right restorationism. The specimen consists of a shave biopsy measuring 7j8c6te. Jar 0. Specimen B: Received is one formalin filled container labeled with the patient's name and designated right upper lid. The specimen consists of a shave biopsy measuring 3x6w9jc. Jar 0. 0 1:20 PM CDT DERMATOPATHOLOGY LABORATORY Microscopic Description Specimen A. SKIN, right restorationism: Within the dermis there are nodular aggregates of basaloid cells associated with fibromyxoid stroma and epithelial-stromal clefts. At the advancing margin of the neoplasm, there are smaller angulated nests that infiltrate the dermis. Specimen B. SKIN, right upper lid: Within the dermis there are aggregates of basaloid cells with a high nuclear to cytoplasmic ratio and peripheral palisading. Additional deeper sections were obtained and reviewed. 0 1:20 PM CDT DERMATOPATHOLOGY LABORATORY Disclaimer An external and internal positive and negative controls are appropriate for the histochemical, immunohistochemical and immunofluorescence stain(s) in this case (if any), except where stated explicitly. The performance characteristics of the stain(s) cited in this report were developed and its performance characteristic determined by the Dermatopathology Laboratory at [facility], directed by Dr. Joaquim Alicea. These tests need not be, and therefore are not, approved by the [place] Food and Drug Administration. The tests are used for clinical purposes. Billing Codes Specimen Charges Stain Charges 88005 16741 1 1 0 1:20 PM CDT DERMATOPATHOLOGY LABORATORY Embedded Images 0 1:20 PM CDT DERMATOPATHOLOGY LABORATORY Pathology/Cytology TISSUE SPECIMEN FROM SKIN / Unknown 04/13/2020 04/17/2020 7:08 AM CDT Miscellaneous samples (specimen) TISSUE SPECIMEN FROM SKIN / Unknown 04/13/2020 04/17/2020 7:08 AM CDT us Mich Mays MD LAB - PATHOLOGY/CYTOLOGY ORDER TIRSO Final Result DERMATOPATHOLOGY LABORATORY [facility] - Department of Dermatology [facility] Specialized Medicine [address] [place] [address], [address] [phone] documented in this encounter Visit Diagnoses Not on filedocumented in this encounter Care Teams Sped Teacher Relationship Specialty Start Date End Date Scra Simon MD [address] [place] [phone] PCP - General 08/20/22 documented as of this encounter
--- OUTSIDE RECORDS SUMMARY | 2025-01-25 09:28 | XMS_ITS | Clinical Summary ---
Author Organization [facility] Address [address] [place] [address] Care Team Providers Care Route Manager Name Role Phone Scar Simon MD Primary Care Provider [phone] Source Comments [facility],non-owned Affiliates and Associated Physician Practices is amultiple site organization consisting of ambulatory clinics and hospital sitesin [place], [place], [place] and [place]. This disclosure is being madepursuant to the Care Everywhere program and may not contain all information available regarding this patient. Last updated 18.[facility] Social History Tobacco Use Types Packs/Day Years Used Date Smoking Tobacco: Never Assessed Sex and Gender Information Value Date Recorded Sex Assigned at Not on file Legal Sex Male 4:20 PM CDT Gender Identity Not on file Sexual Orientation Not on file Plan of Treatment Health Maintenance Due Date Last Done Comments COLOGUARD (AGES 45-75) - COL ON CA SCREENING 1952 COLON MONITORING 1952 COLONOSCOPY - COLON CA SCREENING 1952 CT COLONOGRAPHY - COLON CA SCREENING 1952 Colorectal Cancer Screening 1952 FIT - COLON CA SCREENING 1952 FLEX SIG - COLON CA SCREENING 1952 LIPID TESTING 1952 HEPATITIS C SCREENING 07/19/1970 DTAP/TDAP/TD VACCINES (1 - Tdap) 1971 PNEUMOCOCCAL VACCINE 50+ (1 of 1 - PCV) 2002 ZOSTER VACCINE (1 of 2) 2002 COVID-19 VACCINE (2023-2 5 season) 2024 DEPRESSION SCREENING 07/13/2024 MEDICARE AWV CALENDAR YEAR 2024 INFLUENZA VACCINE (#1) 2025 Respiratory Syncytial Virus (RSV) Vaccine Pt: or over 60 yrs (1 - 1-dose 75+ series) 2027 HEPATITIS B VACCINE Aged Out No longe r eligible based on patient's age to complete this topic HIB VACCINE Aged Out No longer eligi ble based on patient's age to complete this topic HPV VACCINE Aged Out No longer eligi ble based on patient's age to complete this topic MENINGOCOCCAL (Group B) VACC INE SHARED DECISION-MAKING Aged Out No longer eligibl e based on patient's age to complete this topic MENINGOCOCCAL GROUPS A/C/Y/W VACCINE Aged Out No longer eligible b ased on patient's age to complete this topic Insurance AETNA AETNA MEDICARE [facility] Care Teams Route Manager Relationship Specialty Start Date End Date Scar Simon MD [address] [place] [phone] PCP - General 08/20/22
--- OUTSIDE RECORDS SUMMARY | 2025-01-25 09:28 | XMS_ITS | Encounter Summary ---
Author Organization [facility] Address [address] [place] [address] Care Team Providers Care Mold Finisher Name Role Phone Scar Simon MD Primary Care Provider [phone] Encounter Details Date Type Department Care Team (Late st Contact Info) Description 04/27/2023 Lab Requisition [facility] - DermPath Lab [address] [facility], [place] [phone] Mich Mays MD [address] [place] [address] Social History Tobacco Use Types Packs/Day Years [...] Priority Date/Time Associated Diagnosis Comments DERMATOPATHOLOGY Routine 04/24/2023 12:0 0 AM CDT documented in this encounter Results * DERMATOPATHOLOGY (04/24/2023 12:00 AM CDT) Case Report Dermatopathology Report Case: [id number] Authorizing Provider: Mich Mays MD Collected: 04/24/2023 12:00 AM Ordering Location: [facility] DermPath Lab Received: 04/27/2023 04:05 PM Pathologist: Mervat Felix MD Specimen: Skin, right upper arm 3 2:37 PM CDT DERMATOPATHOLOGY LABORATORY Final Diagnosis Specimen A. SKIN, right upper arm: BASAL CELL CARCINOMA, SUPERFICIAL MULTIFOCAL (C44.612) 3 2:37 PM CDT DERMATOPATHOLOGY LABORATORY at 1437 CDT Clinical History ISK vs AK vs SCCA vs BCCA Path# [id number] 3 2:37 PM CDT DERMATOPATHOLOGY LABORATORY Gross Description Specimen A: Received is one formalin filled container labeled with the patient's name and designated right upper arm. The specimen consists of a shave biopsy measuring 8x6x1 mm. Jar 0. 3 2:37 PM CDT DERMATOPATHOLOGY LABORATORY Microscopic Description Specimen A. SKIN, right upper arm: Attached to the undersurface of the epidermis, there are small aggregates of basaloid cells with a high nuclear to cytoplasmic ratio and peripheral palisading. 3 2:37 PM CDT DERMATOPATHOLOGY LABORATORY Disclaimer An external and internal positive and negative controls are appropriate for the histochemical, immunohistochemical and immunofluorescence stain(s) in this case (if any), except where stated explicitly. The performance characteristics of the stain(s) cited in this report were developed and its performance characteristic determined by the Dermatopathology Laboratory at [facility], directed by Dr. Joaquim Alicea. These tests need not be, and therefore are not, approved by the [place] Food and Drug Administration. The tests are used for clinical purposes. Billing Codes Specimen Charges Stain Charges 05994 1 3 2:37 PM CDT DERMATOPATHOLOGY LABORATORY Embedded Images 3 2:37 PM CDT DERMATOPATHOLOGY LABORATORY Pathology/Cytolog y TISSUE SPECIMEN FROM SKIN / Unknown 04/24/2023 04/27/2023 4:05 PM CDT us Mcih Mays MD LAB - PATHOLOGY/CYTOLOGY ORDER TIRSO Final Result DERMATOPATHOLOGY LABORATORY [facility] - Department of Dermatology [address], [address] [place] [address], [facility] [phone] documented in this encounter Visit Diagnoses Not on filedocumented in this encounter Care Teams Mold Finisher Relationship Specialty Start Date End Date Scar Simon MD [address] [place] [phone] PCP - General 08/20/22 documented as of this encounter
[2025-01-25 09:31] VITALS: BP 141/72; PULSE 87; RESP 18; TEMP 36.6; O2SAT 97
--- NOTE | 2025-01-25 09:36 | ED.EYEPROB ---
HPI - Eye Problem General Chief complaint: Eye Problems Stated complaint: RT Eye Problems Time Seen by Provider: 01/25/25 09:36 Source: patient Mode of arrival: ambulatory Limitations: no limitations History of Present Illness HPI Narrative: 74 y/o male presented for c/o right eye redness and irritation and blurred vision. Onset this morning after accidentally instilling Swimmer's ear drops into the eye instead of his lubricating eye drops. States he immediately flushed the eye with water and lubricating drops. Continued to flush the eye but endorses irritation continued. He has eye doctor who returned their call while in clinic, and will be contacting them upon discharge. MD chief complaint: eye pain Related Data Home Medications ?Medication ?Instructions ?Recorded ?Confirmed ?Last Taken ?Type calcium-ergocalciferol (vit D2) tablet PO 06/11/20 12/06/24 Unknown History tablet peyrcermtzg-igf-nbewwshja-hrb tablet PO 06/11/20 12/06/24 Unknown History 149-hyalur 500 mg-500 mg-66.7 mg tablet (Raffoxpgtbv-Nnskpzkehrq-KJM (with antiox)) multivitamin 1 tablet PO DAILY 06/11/20 01/25/25 Unknown History ascorbate calcium (vitamin C) 500 500 mg PO DAILY 04/29/21 01/25/25 Unknown History mg tablet aspirin 81 mg tablet,delayed 81 mg PO DAILY 04/29/21 01/25/25 Unknown History release naproxen sodium 220 mg capsule 220 mg PO BID PRN 04/29/21 12/06/24 Unknown History olopatadine 0.2 % eye drops (Eye 1 drp EACH EYE DAILY 04/29/21 12/06/24 Unknown History Allergy Itch Relief) tamsulosin 0.4 mg capsule 0.4 mg PO DAILY 10/07/23 01/25/25 Unknown History Allergies Allergy/AdvReac Type Severity Reaction Status Date / Time shrimp Allergy Hives Uncoded 01/25/25 09:24 bananas AdvReac Migraine Uncoded 01/25/25 09:24 chocalate AdvReac Migraine Uncoded 01/25/25 09:24 Review of Systems Review of Systems: CONSTITUTIONAL: Denies body aches, fever, chills EYES:Endorses redness and gritty sensation, tearing, and blurred vision to right eye; Denies swelling, FB sensation, photophobia ENT: Denies rhinorrhea, congestion, sore throat, or otalgia. CARDIOVASCULAR: Denies chest pain, palpitations RESPIRATORY: Denies cough or dyspnea. SKIN: Denies rash, itching, or wounds. NEUROLOGIC: Denies headache, numbness, tingling, or weakness. All systems reviewed & are unremarkable except as noted in HPI and below PMFSH Past Medical History Medical History Edema Dyslipidemia HTN (hypertension) Low testosterone Pain in both feet Contracture of both Achilles tendons Hearing loss Elevated PSA History of squamous cell carcinoma History of basal cell carcinoma (BCC) of skin Surgical History Surgical History History of carpal tunnel release 2021 left wrist, 2023 right wrist History of bilateral cataract extraction 2021 H/O vasectomy Family History Family History Other Cerebrovascular accident Diabetes mellitus Family history of arthritis Social History Social History Social History: Patient declined to answer [facility] Questionnaire on 12/06/2024 Smoking status: Never smoker Second hand tobacco smoke exposure: No Alcohol intake: current Substance use: never Substance use type: does not use Do You Feel Safe in your Home?: Yes Lack of Transportation: No Lack of Food: Never True Current Housing: I Have Housing Concerned About Future Housing: No Difficulty Paying Gas/Electric Bills: No Difficulty Paying for Meds: No Currently Unemployed: No Education: Bachelor's Degree Difficulty w/ Childcare or Family Care: No Living arrangements: with family Occupation/Education: retired Gender identity (if verbalized by the patient): Male Sexual Orientation (if Verbalized by the Patient): Straight or Heterosexual Comments At time of signature, I have reviewed and agree with nursing past medical, surgical, social and family history unless otherwise noted. Please see nursing chart for further information. There is no relevant family history pertinent to the presenting complaint Exam Narrative: GENERAL: Well-appearing HEAD: Normocephalic, atraumatic. EYES: right conjunctival injection, frequent tearing noted. Visual acuity right eye 20/100; left 20/30. No eye lid swelling. PERRLA, EOMI. Lid eversion shows no FB. ENT: Mucous membranes pink and moist. No rhinorrhea. CHEST: Clear to auscultation. HEART: Regular rate and rhythm. SKIN: Warm, dry, no rash. Normal skin turgor. NEURO: No focal deficits. Alert and oriented x3 PSYCH: Normal affect. Course Course Emergency Course: Patient is aware of diagnosis, understands and agrees to treatment plan. Anticipatory guidance given. Patient agrees to follow-up as directed and is aware of reasons to seek care at the emergency department. Portions of this record may have been created with voice recognition software Level of Care: Express Care Visit Vital Signs Vital signs: Vital Signs Temperature 97.9 F 01/25/25 09:31 Pulse Rate 87 01/25/25 09:31 Respiratory Rate 18 01/25/25 09:31 Blood Pressure 141/72 H 01/25/25 09:31 Pulse Oximetry 97 01/25/25 09:31 Oxygen Delivery Room Air 01/25/25 09:31 Temperature 97.9 F 01/25/25 09:31 Pulse Rate 87 01/25/25 09:31 Respiratory Rate 18 01/25/25 09:31 Blood Pressure 141/72 H 01/25/25 09:31 Pulse Oximetry 97 01/25/25 09:31 Oxygen Delivery Room Air 01/25/25 09:31 MDM - Eye Problem MDM Narrative Medical decision making narrative: Discussed physical exam findings. Pt declined Irwin lamp exam, stating they will be contacting their perianesthesia nurse at discharge, and would just like to have abx drops at this time. Advised supportive measures and signs/symptoms to go to the ER. Pt is appropriate for outpt treatment and f/u. Differential Diagnosis Differential diagnosis: Likely corneal abrasion, conjunctivitis, acute iritis and other Discharge Plan Discharge Clinical Impression: Irritation of eye Patient Disposition: Home Condition: Stable Instructions: Antibiotic Form, Corneal Abrasion (ED) Additional Instructions: You can wear sunglasses or stay in low light to avoid light sensitivity. Do not touch or rub your eye. Use over the counter lubricating eye drops as needed for irritation You can continue to irrigate the eye with lukewarm water Do not wear contact lenses until issue is resolved You may take Tylenol or ibuprofen for pain Follow-up with perianesthesia nurse, call today to schedule appointment Go to the ER immediately for any worsening symptoms or concerns Additional eye doctors: [facility] [phone] [facility] [phone] [facility] [phone] [facility] [phone] Patient Language: Croatian Prescriptions: New erythromycin 5 mg/gram (0.5 %) ointment 1 applic RIGHT EYE QID 5 Days Qty: 3.5 0RF No Action olopatadine [Eye Allergy Itch Relief] 0.2 % drops 1 drp EACH EYE DAILY ascorbate calcium (vitamin C) 500 mg tablet 500 mg PO DAILY aspirin 81 mg tablet,delayed release (DR/EC) 81 mg PO DAILY naproxen sodium 220 mg capsule 220 mg PO BID PRN tamsulosin 0.4 mg capsule 0.4 mg PO DAILY losartan 100 mg tablet 100 mg PO DAILY Qty: 90 1RF simvastatin 10 mg tablet 10 mg PO DAILY Qty: 90 1RF amlodipine 10 mg tablet 10 mg PO DAILY Qty: 90 0RF multivitamin Tablet 1 tablet PO DAILY calcium-vitamin D2 Tablet PO [id number] [[id number]-[id number] (with antiox)] 500-500-66.7 mg tablet PO prednisone 20 mg tablet 20 mg PO DAILY Qty: 5 0RF furosemide 20 mg tablet 20 mg PO QAM Qty: 90 0RF ezetimibe 10 mg tablet 10 mg PO DAILY Qty: 90 0RF testosterone cypionate [Depo-Testosterone] 200 mg/mL oil 100 mg IM Q8D Qty: 6 1RF Rx Instructions: as a single dose pseudoephedrine HCl [Sudafed 12 Hour] 120 mg tablet extended release 120 mg PO Q12H PRN (Reason: nasal congestion) Qty: 60 2RF (DME) syringe with needle 3 mL 21 gauge x 1 syringe See Rx Instructions .Route Qty: 12 1RF Rx Instructions: Injection IM Q 8 days montelukast [Singulair] 10 mg tablet 10 mg PO DAILY Qty: 90 0RF Follow-up/Referrals: Tanya Bowen PA-C [Primary Care Provider] - Time of Disposition: 09:50
== END 2025-01-25 09:51 | disposition home or self-care (01) ==
PROVIDERS: Emergency Provider Nurse Practitioner Family; PCP Physician Assistant Medical
DX: H57.11 Ocular pain, right eye (principal); I10 Essential (primary) hypertension; E78.5 Hyperlipidemia, unspecified; Z85.828 Personal history of other malignant neoplasm of skin; Z98.42 Cataract extraction status, left eye; Z98.41 Cataract extraction status, right eye; Z98.52 Vasectomy status
CPT/HCPCS: 99213; G0463